=== PATIENT | female | born 1950 | race Asian ===

== ENCOUNTER 2018-05-28 08:09 | Day surgery (SDC) | payer MEDICARE, OTHER ==
[~2018-05-28] VITALS: Ht 152.4 cm; Wt 55.5 kg
[~2018-05-28 08:09] MED LIST: 0.9% SODIUM CHLORIDE 10 ML SYRINGE IVP PRN; ATOR20TA86 PO; DICLOFENAC SODIUM 0.1% 2.5 ML OPHTHALMIC SOLUTION OD ONE; DICLOFENAC SODIUM 0.1% 2.5 ML OPHTHALMIC SOLUTION ONE; MOXIFLOXACIN HCL 0.5% 3 ML OPHTHALMIC SOLUTION OD ONE; MOXIFLOXACIN HCL 0.5% 3 ML OPHTHALMIC SOLUTION ONE; PHENYLEPHRINE HCL 2.5% 2 ML OPHTHALMIC SOLUTION ONE; RINGERS SOLUTION,LACTATED 500 ML IV ONE; TROPICAMIDE 1% 2 ML OPHTHALMIC SOLUTION ONE
[2018-05-28] MEDS ORDERED: POVIDONE-IODINE 10% 15 ML SOLUTION UD TP ONE (08:10)
[2018-05-28] MEDS ORDERED: HYALURONATE SOD/CHONDROITIN SOD 0.5 ML VIAL IO ONE (08:10)
[2018-05-28] MEDS ORDERED: FentaNYL CITRATE-PF 100 MCG/2 ML VIAL IVP ONE (08:10)
[2018-05-28] MEDS ORDERED: MIDAZOLAM HCL 2 MG/2 ML VIAL IVP ONE (08:10)
[2018-05-28] MEDS ORDERED: LIDOCAINE/PF 1% 2 ML VIAL IM ONE (08:10)
[2018-05-28] MEDS ORDERED: HYALURONATE SODIUM 12 MG/ML 0.8 ML SYRINGE IO ONE (08:10)
[2018-05-28] MEDS ORDERED: TETRACAINE HCL VISCOUS 0.5% 0.6 ML OPHTHALMIC SOLUTION OD ONE (08:10)
[2018-05-28] MEDS: TROPICAMIDE 1% 2 ML OPHTHALMIC SOLUTION OD SCH ×2 (08:57→09:03)
[2018-05-28] MEDS: PHENYLEPHRINE HCL 2.5% 2 ML OPHTHALMIC SOLUTION OD SCH ×2 (09:03→09:11)
[2018-05-28 09:04] LABS: GLUCOMETER DEV NAME(LOC) SDS.; GLUCOSE,POINT OF CARE 118 MG/DL (70-110)
== END 2018-05-28 12:25 | disposition home or self-care (01) ==
LOC: SURGERY 08:09
PROVIDERS: ATTEND Specialist
DX: E11.36 Type 2 diabetes mellitus with diabetic cataract (principal); H25.13 Age-related nuclear cataract, bilateral; H25.013 Cortical age-related cataract, bilateral; E78.00 Pure hypercholesterolemia, unspecified; G43.909 Migraine, unspecified, not intractable, without status migrainosus; Z79.899 Other long term (current) drug therapy
CPT/HCPCS: 66984; 82962; 93005; C1780; J2250; J3010; J3490 ×2; J7120